=== PATIENT | female | born 1980 | race Caucasian/White ===

== ENCOUNTER 2019-12-20 18:59 | Emergency (ER) | payer OTHER ==
[~2019-12-20] VITALS: Ht 167.6 cm; Wt 72.7 kg
[2019-12-20 19:07] VITALS: Ht 167.6 cm; Wt 72.7 kg
[2019-12-20] MEDS ORDERED: KLONOPIN1 MG PO ×2 (19:09→19:24)
[2019-12-20] MEDS ORDERED: TOPAMAX50 MG PO (19:09)
[2019-12-20] MEDS ORDERED: LEXAPRO20 MG PO (19:09)
[2019-12-20] MEDS ORDERED: CYCLOBENZAPRINE10 MG PO (19:24)
[2019-12-20] MEDS ORDERED: ZOFRAN ODT4 MG/UDTAB PO (21:53)
[2019-12-20 21:58] VITALS: BP 126/82
== END 2019-12-20 21:47 | disposition home or self-care (01) ==
LOC: D.ER 18:59
DX: S16.1XXA Strain of muscle, fascia and tendon at neck level, initial encounter (principal); T14.8XXA Other injury of unspecified body region, initial encounter; V89.2XXA Person injured in unspecified motor-vehicle accident, traffic, initial encounter; Y93.9 Activity, unspecified; Y92.9 Unspecified place or not applicable; R51 Headache